=== PATIENT | male | born 1945 | race Native Hawaiian/Other Pacific Islander ===

== ENCOUNTER 2019-01-29 10:15 | Day surgery (SDC) | payer MEDICARE ==
[2019-01-25 09:47] VITALS: BMI 27.6
[2019-01-29] MEDS ORDERED: Propofol 10 mg/ml Inj (20 ML) ONE (12:14)
[2019-01-29] MEDS ORDERED: Sodium Chloride 0.9% 1,000 ML IV SCH (13:00)
[2019-01-29 14:57] VITALS: BP 128/72; PULSE 80; RESP 18; TEMP 97.8; O2SAT 95
== END 2019-01-29 14:49 | disposition home or self-care (01) ==
LOC: ENDO 10:15
PROVIDERS: ATTEND Internal Medicine Gastroenterology
DX: D12.2 Benign neoplasm of ascending colon (principal); K63.3 Ulcer of intestine; K64.0 First degree hemorrhoids; R19.4 Change in bowel habit
CPT/HCPCS: 45380; 82948; 88305; J2001; J2704; J7030; J7040

== ENCOUNTER 2019-02-21 18:02 | Emergency (ER) | payer MEDICARE ==
[2019-02-21 18:02] VITALS: BMI 27.6
--- NOTE | 2019-02-21 18:23 | ED PDOC ---
Arrival/HPI <Jitendra Castro - Last Filed: 02/21/19 19:04> - History of Present Illness Narrative History of Present Illness (Text): 02/21/19 18:22 Patient is a 73 yo male with hypertension, hyperlipidemia, and T2DM who presents with dizziness. Patient states he was at his surgeon's office, and when the surg paola started describing the details of the colon surgery he will need, he felt dizzy and started vomiting. He also states that they checked his BP and it was low, but he cannot remember the exact number. He attempted to drink water but vomited 3 times, nonbloody, nonbilious. He presently feels generalized weakness with some nausea and lightheadedness. He denies headache, LOC, vision change, chest pain, palpitations, shortness of breath, and diarrhea. Time/Duration: 1 hour Symptom Onset: Sudden Symptom Course: Improving <Lyndsey Navas - Last Filed: 02/21/19 19:31> - General Chief Complaint: Dizziness/Lightheaded Time Seen by Provider: 02/21/19 18:20 Past Medical History - Provider Review Nursing Documentation Reviewed: Yes - Cardiac Hx Pacemaker: No - Neurological Hx Paralysis: No - Hematological/Oncological Hx Blood Transfusions: No Hx Blood Transfusion Reaction: No - Musculoskeletal/Rheumatological Hx Musculoskeletal Disorders: No - Psychiatric Hx Emotional Abuse: No Hx Physical Abuse: No Hx Substance Use: No - Anesthesia Hx Anesthesia Reactions: No Hx Malignant Hyperthermia: No - Suicidal Assessment Feels Threatened In Home Enviroment: No <Lyndsey Navas - Last Filed: 02/21/19 19:31> Family/Social History - Physician Review Nursing Documentation Reviewed: Yes Family/Social History: Unknown Family HX Smoking Status: Former Smoker Hx Alcohol Use: No Hx Substance Use: No <Lyndsey Navas - Last Filed: 02/21/19 19:31> Allergies/Home Meds <Jitendra Castro - Last Filed: 02/21/19 19:04> <Lyndsey Navas - Last Filed: 02/21/19 19:31> Allergies/Adverse Reactions: Allergies Penicillins Allergy (Verified 02/21/19 18:11) SWELLING Home Medications: Home Meds Medication Instructions Recorded Confirmed Aspirin [Adult Low Dose Aspirin EC] 81 mg PO DAILY 01/25/19 01/29/19 Lisinopril [Zestril] 5 mg PO DAILY 01/25/19 01/29/19 Repaglinide [Prandin] 2 mg PO BID 01/25/19 01/29/19 Simvastatin 40 mg PO DAILY 01/25/19 01/29/19 metFORMIN [glucOPHAGE] 500 mg PO BID 01/25/19 01/29/19 Vitamin E Mixed [Vitamin E] 1,000 cap PO QWK 01/29/19 01/29/19 Review of Systems - Review of Systems Constitutional: Fatigue. absent: Fevers Eyes: absent: Vision Changes ENT: absent: Hearing Changes, Tinnitus Respiratory: absent: SOB, Cough Cardiovascular: absent: Chest Pain, Palpitations, Edema Gastrointestinal: Nausea, Vomiting. absent: Abdominal Pain, Diarrhea Genitourinary Male: absent: Dysuria, Hematuria Musculoskeletal: absent: Arthralgias, Myalgias Skin: absent: Rash, Pruritis, Skin Lesions Neurological: Dizziness. absent: Headache, Focal Weakness, Speech Changes, Facial Droop Endocrine: absent: Diaphoresis Hemo/Lymphatic: absent: Adenopathy <Lyndsey Navas - Last Filed: 02/21/19 19:31> Physical Exam Vital Signs Temp Pulse Resp BP Pulse Ox 02/21/19 18:11 98.2 F 64 18 130/66 96 <Jitendra Castro - Last Filed: 02/21/19 19:04> Vital Signs Temp Pulse Resp BP Pulse Ox 02/21/19 18:11 98.2 F 64 18 130/66 96 Temperature: Afebrile Blood Pressure: Normal Pulse: Regular Respiratory Rate: Normal Appearance: Positive for: Non-Toxic, Comfortable Pain Distress: None Mental Status: Positive for: Alert and Oriented X 3 - Systems Exam Head: Present: Atraumatic, Normocephalic Pupils: Present: PERRL Extroacular Muscles: Present: EOMI Conjunctiva: Present: Normal Mouth: Present: Dry Respiratory/Chest: Present: Clear to Auscultation, Good Air Exchange Cardiovascular: Present: Regular Rate and Rhythm, Normal S1, S2 Abdomen: No: Tenderness, Distention Back: Present: Normal Inspection Upper Extremity: Present: Normal Inspection, Neurovascularly Intact Lower Extremity: Present: Normal Inspection, Neurovascularly Intact. No: Edema Neurological: Present: GCS=15, CN II-XII Intact, Speech Normal Skin: Present: Warm, Dry, Pale Psychiatric: Present: Alert, Oriented x 3, Normal Insight, Normal Concentration, Normal Affect, Normal Mood <Lyndsey Navas - Last Filed: 02/21/19 19:31> Medical Decision Making ED Course and Treatment: 02/21/19 19:05 Patient seen and examined with resident. 73 year old M presents with cc of near syncope. No skin pallor on exam. - Medication Orders Current Medication Orders: Sodium Chloride (Sodium Chloride 0.9%) 1,000 mls @ 999 mls/hr IV .Q1H1M STA Stop: 02/21/19 19:27 Last Admin: 02/21/19 18:59 Dose: 999 mls/hr eMAR Start Stop Document 02/21/19 18:59 [email or web address] (Rec: 02/21/19 18:[id number]) Intravenous Solution Start Date 02/21/19 Start Time 18:59 Discontinued Medications Ondansetron HCl (Zofran Inj) 4 mg IVP STAT STA Stop: 02/21/19 18:28 Last Admin: 02/21/19 19:00 Dose: 4 mg IVP Administration Document 02/21/19 19:00 [email or web address] (Rec: 02/21/19 19:00 [email or web address] [id number]) Charges for Administration # of IVP Administrations 1 <Jitendra Castro - Last Filed: 02/21/19 19:04> ED Course and Treatment: 02/21/19 18:32 IVF, Zofran 02/21/19 19:26 Re-evaluated patient. He states that he is feeling better. He was advised to follow-up with his PMD. He and agreeable with discharge home. Re-evaluation Time: 19:26 Reassessment Condition: Re-examined, Improved - EKG Interpretation EKG Interpretation (Text): 02/21/19 18:33 NSR @ 64 bpm, No ST elevations Interpreted by ED Physician: Yes Type: 12 lead EKG Comparison: No previous EKG avail. <Lyndsey Navas - Last Filed: 02/21/19 19:31> Disposition/Present on Arrival <Jitendra Castro - Last Filed: 02/21/19 19:04> - Present on Arrival Any Indicators Present on Arrival: No History of DVT/PE: No History of Uncontrolled Diabetes: No Urinary Catheter: No History of Decub. Ulcer: No History Surgical Site Infection Following: None - Disposition Have Diagnosis and Disposition been Completed?: Yes Disposition Time: 19:27 Patient Plan: Discharge <Lyndsey Navas - Last Filed: 02/21/19 19:31> - Disposition Diagnosis: Vasovagal near syncope Disposition: HOME/ ROUTINE Patient Problems: Current Active Problems Problem Status Onset Vasovagal near syncope Acute Condition: GOOD Discharge Instructions (ExitCare): Vasovagal Response (DC) Additional Instructions: AMOL MCRAE, thank you for letting us take care of you today. Your provider was Jitendra Castro MD and you were treated for DIZZINESS. The emergency medical care you received today was directed at your acute symptoms. If you were prescribed any medication, please fill it and take as directed. It may take several days for your symptoms to resolve. Return to the Emergency Department if your sym ptoms worsen, do not improve, or if you have any other problems. Please contact your doctor or call one of the physicians/clinics you have been referred to that are listed on the Patient Visit Information form that is included in your discharge packet. Bring any paperwork you were given at discharge with you along with any medications you are taking to your follow up visit. Our treatment cannot replace ongoing medical care by a primary care provider outside of the emergency department. Thank you for allowing the [facility] team to be part of your care today. Referrals: PCP,NO [Primary Care Provider] - Follow up with primary [facility] [Outside] - Follow up with primary [facility] [Outside] - Follow up with primary Forms: [employer] (British)
[2019-02-21] MEDS ORDERED: Sodium Chloride 0.9% 1,000 ML IV STA (18:27)
[2019-02-21 19:00] LABS: BASO # 0.01 K/mm3 (0.0-2.0); BASO % 0.2 % (0.0-3.0); EOS # 0.1 (0.0-0.7); EOS % 2.8 % (1.5-5.0); HEMOGLOBIN 12.5 g/dL (14.0-18.0); LYMPH % 43.4 % (22.0-35.0); MEAN CELL VOLUME 87.4 fl (80.0-105.0); MEAN CORPUSCULAR HEMOGLOBIN 29.3 pg (25.0-35.0); MEAN CORPUSCULAR HGB CONC 33.5 g/dl (31.0-37.0); MEAN PLATELET VOLUME 9.7 fl (7.0-11.0); MONO # 0.4 (0.1-0.6); MONO % 8.2 % (1.0-6.0); RBC 4.27 10^6/uL (3.5-6.1); RED CELL DISTRIBUTION WIDTH 13.6 % (11.5-14.5); WHITE BLOOD COUNT 4.7 10^3/uL (4.5-11.0)
[2019-02-21 19:23] LABS: ALB/GLOB RATIO 1.3 (1.1-1.8); ALT/SGPT 15 U/L (7-56); AST/SGOT 23 U/L (17-59); BLOOD UREA NITROGEN 25 mg/dL (7-21); CALCIUM 9.2 mg/dL (8.4-10.5); GFR NON-AFRICAN AMERICAN > 60
[2019-02-21 19:34] LABS: TROPONIN I < 0.01 ng/mL
[2019-02-21 19:44] VITALS: BP 129/59; PULSE 69; RESP 16; TEMP 97.5; O2SAT 100
--- NOTE | 2019-02-21 20:28 | CARD ---
APPROVED REPORT Date of service: 02/21/2019 EKG Measurement Heart [id number] <Conclusion> Normal sinus rhythm LBBB Abnormal ECG
== END 2019-02-21 20:29 | disposition home or self-care (01) ==
LOC: ED 18:02
DX: R55 Syncope and collapse (principal); I10 Essential (primary) hypertension; E78.5 Hyperlipidemia, unspecified; E11.9 Type 2 diabetes mellitus without complications; Z87.891 Personal history of nicotine dependence
CPT/HCPCS: 80053; 82550; 82948; 83615; 83735; 84100; 84484; 85025; 93005; 96374; 99285; J2405; J7030